=== PATIENT | male | born 1995 | race Two or more races ===

== ENCOUNTER 2019-12-26 14:55 | Emergency (ER) | payer OTHER ==
[~2019-12-26] VITALS: Ht 162.6 cm; Wt 66.2 kg
--- NOTE | 2019-12-26 16:43 | NUR ---
ED Nurse Note: here for wound recheck on the right eyelid; patient has sutures.
[2019-12-26 16:44] VITALS: BP 145/85
[2019-12-26 16:47] VITALS: BP 155/72
--- NOTE | 2019-12-26 16:47 | NUR ---
ER DISCHARGE NOTE: Patient is cleared to be discharged per ERMD, pt is aox4, on room air, with stable vital signs. pt was given dc and prescription instructions, pt was able to verbalize understanding, pt id band removed. pt is able to ambulate with steady gait. pt took all belongings.
[2019-12-26] MEDS ORDERED: BACITRACIN15 GM TOPIC (16:50)
--- NOTE | 2019-12-26 16:50 | Emergency Room Report ---
History of Present Illness General Chief Complaint: Wound Recheck/Suture Removal Source: Patient Present Illness HPI 24-year-old male presents to the emergency department for wound recheck of recently sutured right eyebrow laceration. Patient denies pain at this time he states he has been taking Tylenol. Patient denies bleeding or discharge from the laceration. Patient denies tenderness. Patient states he did not receive any antibiotic ointment. No other aggravating or relieving factors at this time. Denies fevers or chills. Allergies: Coded Allergies: No Known Allergies (Unverified , 12/24/19) COVID-19 Screening Contact w/high risk pt: No Experienced COVID-19 symptoms?: No COVID-19 Testing performed DEVELOPMENTAL PSYCHOLOGIST: No Patient History Past Medical History: see triage record Past Surgical History: none Pertinent Family History: none Immunizations: UTD Reviewed Nursing Documentation: PMH: Agreed; PSxH: Agreed Nursing Documentation-PMH Past Medical History: No Stated History Hx Asthma: Yes Review of Systems All Other Systems: negative except mentioned in HPI Physical Exam Vital Signs Date Time Temp Pulse Resp B/P (MAP) Pulse Ox O2 Delivery O2 Flow Rate FiO2 12/26/19 15:52 97.3 73 14 145/85 (105) 99 Room Air Sp02 EP Interpretation: reviewed, normal General Appearance: no apparent distress, alert, GCS 15, non-toxic Head: normocephalic, other - Healing 4 cm right eyebrow laceration with sutures in place no evidence of infection at this time Eyes: bilateral eye normal inspection, bilateral eye PERRL ENT: hearing grossly normal, normal voice Neck: full range of motion Respiratory: lungs clear, normal breath sounds, speaking full sentences Cardiovascular #1: regular rate, rhythm Musculoskeletal: normal range of motion, gait/station normal, non-tender Neurologic: alert, motor strength/tone normal, oriented x3, sensory intact, responsive, speech normal Psychiatric: judgement/insight normal Skin: laceration - Healing 4 cm right eyebrow laceration with sutures in place no evidence of infection at this time Medical Decision Making PA Attestation Dr. Nixon is my supervising Physician whom patient management has been discussed with. Diagnostic Impression: Primary Impression: Encounter for wound re-check ER Course 24-year-old male presents to the emergency department for wound recheck of recently sutured right eyebrow laceration. Patient denies pain at this time he states he has been taking Tylenol. Patient denies bleeding or discharge from the laceration. Patient denies tenderness. Patient states he did not receive any antibiotic ointment. No other aggravating or relieving factors at this time. Denies fevers or chills. Ddx considered but are not limited to laceration, tendon injury, cellulitis, dehiscence. Vital signs: are WNL, pt. is afebrile H&PE are most consistent with: healing 4cm right eyebrow laceration --no evidence of infection at this time. ORDERS: none required at this time, the diagnosis is clinical ED INTERVENTIONS: - none DISCHARGE: At this time pt. is stable for d/c to home. Will provide printed patient care instructions, and any necessary prescriptions. Care plan and follow up instructions have been discussed with the patient prior to discharge. Last Vital Signs Date Time Temp Pulse Resp B/P (MAP) Pulse Ox O2 Delivery O2 Flow Rate FiO2 12/26/19 16:44 97.3 69 14 145/85 99 Room Air Disposition: HOME, SELF-CARE Condition: Stable Patient Instructions: Wound Check Additional Instructions: Take medications as directed. SUTURE REMOVAL in 4-5 Days Follow up with a Primary Care Provider in 3-5 days, even if your symptoms have resolved. Return sooner to ED if new symptoms occur, or current symptoms become worse. - Please note that this Emergency Department Report was dictated using [employer] engagement director technology software, occasionally this can lead to erroneous entry secondary to interpretation by the dictation equipment. Dori Treviño Dec 26, 2019 16:50
== END 2019-12-26 16:47 | disposition home or self-care (01) ==
LOC: EMR 16:42
DX: S01.111A Laceration without foreign body of right eyelid and periocular area, initial encounter (principal); X58.XXXA Exposure to other specified factors, initial encounter; Y92.9 Unspecified place or not applicable
CPT/HCPCS: 99281

== ENCOUNTER 2020-01-03 20:05 | Emergency (ER) | payer OTHER ==
[~2020-01-03] VITALS: Ht 162.6 cm; Wt 66.2 kg
[~2020-01-03 20:05] MED LIST: BACITRACIN15 GM TOPIC
--- NOTE | 2020-01-03 20:30 | NUR ---
patient was called but not in waiting room
[2020-01-03 20:38] VITALS: BP 126/67
--- NOTE | 2020-01-03 20:50 | Emergency Room Report ---
History of Present Illness General Chief Complaint: Wound Recheck/Suture Removal Present Illness HPI 24-year-old male with no signal past medical history here requesting suture removal of right eyebrow. Sutures were placed in [place] [facility] 1 week ago. Patient denies any pain or pus drainage. Sitting comfortably see vital signs. 5 sutures are placed and intact. Laceration appears to be healed with dried blood around it. Allergies: Coded Allergies: No Known Allergies (Unverified , 12/24/19) COVID-19 Screening Contact w/high risk pt: No Experienced COVID-19 symptoms?: No COVID-19 Testing performed TRAM OPERATOR: No Patient History Past Medical History: see triage record Past Surgical History: none Pertinent Family History: none Immunizations: UTD Reviewed Nursing Documentation: PMH: Agreed; PSxH: Agreed Nursing Documentation-PMH Hx Asthma: Yes Review of Systems All Other Systems: negative except mentioned in HPI Physical Exam Vital Signs Date Time Temp Pulse Resp B/P (MAP) Pulse Ox O2 Delivery O2 Flow Rate FiO2 01/03/20 20:38 98.2 76 18 126/67 (86) 99 Room Air Sp02 EP Interpretation: reviewed, normal General Appearance: well appearing, no apparent distress Head: normocephalic, atraumatic Eyes: bilateral eye normal inspection, bilateral eye PERRL ENT: hearing grossly normal, normal voice Neck: full range of motion, supple Respiratory: no respiratory distress, speaking full sentences Cardiovascular #1: normal inspection, no edema Gastrointestinal: non tender Genitourinary: no CVA tenderness Musculoskeletal: no calf tenderness Neurologic: alert, normal gait Psychiatric: mood/affect normal Skin: normal color, other - Healed laceration right eyebrow with 5 sutures placed in Lymphatic: no adenopathy Medical Decision Making PA Attestation All my diagnosis and treatment plans were reviewed ad discussed with my supervising physician Dr. Sutton Diagnostic Impression: Primary Impression: Encounter for removal of sutures ER Course 24-year-old male with no signal past medical history here requesting suture removal of right eyebrow. Sutures were placed in [place] [facility] 1 week ago. Patient denies any pain or pus drainage. Sitting comfortably see vital signs. 5 sutures are placed and intact. Laceration appears to be healed with dried blood around it. Ddx considered but are not limited to : Superficial laceration, deep laceration , tendon involvement with laceration, laceration with foreign body Vital signs: are WNL, pt. is afebrile H&PE are most consistent with: Suture removal ORDERS: Mupirocin ointment ED INTERVENTIONS: 5 sutures were removed with no complication, Steri-Strip and bandage was applied DISCHARGE: At this time pt. is stable for d/c to home. Will provide printed patient care instructions, and any necessary prescriptions. Care plan and follow up instructions have been discussed with the patient prior to discharge. Patient was evaluated in the context of the global COVID-19 pandemic, which necessitated consideration that the patient might be at risk for infection with the SARS-COV-2 virus that causes COVID-19. Institutional protocols and algorithms that pertain to the evaluation of patients at risk for COVID-19 are in a state of rapid change based on information relieved by multiple regulatory bodies including the CDC and the federal and state organizations. These policies and algorithms were followed during the patient's care in the ED. Last Vital Signs Date Time Temp Pulse Resp B/P (MAP) Pulse Ox O2 Delivery O2 Flow Rate FiO2 01/03/20 20:38 98.2 76 18 126/67 (86) 99 Room Air Disposition: HOME, SELF-CARE Condition: Stable Scripts Mupirocin* (MUPIROCIN*) 22 Gm Oint...g. 1 APPLIC TOPIC THREE TIMES A DAY, #22 GM Prov: Joelle Mason 01/03/20 Patient Instructions: Wound Check Joelle Mason Jan 03, 2020 20:50
[2020-01-03] MEDS ORDERED: MUPIROCIN22 GM TOPIC (20:51)
--- NOTE | 2020-01-03 21:00 | NUR ---
ER DISCHARGE NOTE: Patient is cleared to be discharged per ER provider. Patient verbalized understanding of discharge instructions and departed in stable condition with all belongings.
== END 2020-01-03 21:00 | disposition home or self-care (01) ==
LOC: EMR 21:00
DX: Z48.02 Encounter for removal of sutures (principal); S01.111D Laceration without foreign body of right eyelid and periocular area, subsequent encounter; X58.XXXD Exposure to other specified factors, subsequent encounter; J45.909 Unspecified asthma, uncomplicated
CPT/HCPCS: 99281